=== PATIENT | female | born 1995 | race Caucasian/White ===

== ENCOUNTER 2018-10-23 12:22 | Outpatient (CLI) | payer SELFPAY | END 2018-10-23 15:10 | disposition home or self-care (01) | LOC: OBT 12:22 → L-D 12:22 → OBT 15:10 | DX: O36.8130 Decreased fetal movements, third trimester, not applicable or unspecified (principal); Z3A.37 37 weeks gestation of pregnancy | CPT/HCPCS: 76818 ==

== ENCOUNTER 2018-11-14 16:27 | Inpatient (IN) | payer SELFPAY ==
[2018-11-14] MEDS ORDERED: MISOPROSTOL 200 MCG TAB PR (17:00)
[2018-11-14] MEDS ORDERED: BUTORPHANOL 1 MG INJ IV (17:00)
[2018-11-14] MEDS ORDERED: OXYTOCIN 30 UNITS/LR 500 ML IV ×2 (17:00)
[2018-11-14] MEDS ORDERED: LIDOCAINE 1% (MPF) 30 ML INJ INJ (17:00)
[2018-11-14] MEDS ORDERED: METHYLERGONOVINE 0.2 MG INJ IM (17:00)
[2018-11-14] MEDS ORDERED: BUTORPHANOL 2 MG INJ IV (17:00)
[2018-11-14] MEDS ORDERED: CARBOPROST 250 MCG INJ IM (17:00)
[2018-11-14] MEDS ORDERED: IBUPROFEN 600 MG TAB PO (17:00)
[2018-11-14 18:12] LABS: ADD MAN DIFF? NO
[2018-11-14 18:14] LABS: WHITE BLOOD COUNT 10.7 10^3/ul (4.8-10.8)
[2018-11-14 18:14] LABS: BASOPHILS % 0.2 % (0.0-2.0); EOSINOPHILS % 0.3 % (0.0-7.0); HEMATOCRIT 32.5 % (37.0-47.0); LYMPHOCYTES # 2.3 10^3/ul (0.8-2.9); LYMPHOCYTES % 21.3 % (15.0-51.0); MEAN CORPUSCULAR HEMOGLOBIN 31.3 pg (29.0-33.0); MEAN CORPUSCULAR HGB CONC 33.8 g/dl (32.0-37.0); MEAN CORPUSCULAR VOLUME 92.6 fl (82.0-101.0); MEAN PLATELET VOLUME 11.4 fl (7.4-10.4); MONOCYTE # 1.1 10^3/ul (0.3-0.9); MONOCYTES % 10.7 % (0.0-11.0); NEUTROPHIL # 7.1 10^3/ul (1.6-7.5); NEUTROPHILS % 66.9 % (39.0-77.0); PLATELET COUNT 214 10^3/UL (140-415); RED BLOOD COUNT 3.51 10^6/ul (4.20-5.40); RED CELL DISTRIBUTION WIDTH 13.3 % (11.5-14.5)
[2018-11-14 18:34] LABS: INR 0.93; PARTIAL THROMBOPLASTIN TIME 24.5 Sec (23.0-35.0); PROTIME 12.5 Sec (11.9-14.9)
[2018-11-14] MEDS: LACTATED RINGER'S 1,000 ML IV (18:53)
[2018-11-14 19:07] LABS: HEPATITIS B SURFACE ANTIGEN NEGATIVE (NEGATIVE)
[2018-11-14] MEDS: MISOPROSTOL 50 MCG CAPSULE VAG (20:15)
[2018-11-15] MEDS: MISOPROSTOL 50 MCG CAPSULE VAG ×2 (00:04→05:22)
[2018-11-15] MEDS: LACTATED RINGER'S 1,000 ML IV ×5 (00:33→20:05)
[2018-11-15] MEDS ORDERED: FENTAnyl 2MCG/ML-ROPIV 0.2% 100 ML (09:15)
[2018-11-15] MEDS ORDERED: ONDANSETRON 4 MG INJ IV (09:30)
[2018-11-15] MEDS ORDERED: NALBUPHINE HCL (10 MG/1 ML) INJ IV (09:30)
[2018-11-15] MEDS ORDERED: NALOXONE (0.4 MG/ML) INJ IV (09:30)
[2018-11-15] MEDS ORDERED: DIPHENHYDRAMINE 50 MG INJ IV (09:30)
[2018-11-15] MEDS: FENTAnyl 2MCG/ML-ROPIV 0.2% 100 ML BAG EPI ×3 (10:34→23:52)
[2018-11-15] MEDS: OXYTOCIN 30 UNITS/LR 500 ML IV (10:56)
[2018-11-15] MEDS ORDERED: MINERAL OIL LIGHT 10 ML VIAL TOP (11:00)
[2018-11-15 15:02] LABS: RAPID PLASMA REAGIN NONREACTIVE (NR)
[2018-11-15] MEDS: ACETAMINOPHEN 325 MG TAB PO (19:43)
[2018-11-15] MEDS: GENTAMICIN 120 MG/NS (PMX) 100 ML IVPB (20:06)
[2018-11-15] MEDS: AMPICILLIN 2 GM/NS (PMX) 100 ML IVPB (21:19)
[2018-11-15 23:05] LABS: LACTIC ACID 1.5 mmol/L (0.5-2.0)
[2018-11-16] MEDS: OXYTOCIN 30 UNITS/LR 500 ML IV ×2 (00:11→09:16)
[2018-11-16] MEDS: AMPICILLIN 2 GM/NS (PMX) 100 ML IVPB ×5 (01:15→23:23)
[2018-11-16] MEDS: LACTATED RINGER'S 1,000 ML IV ×2 (02:28→17:10)
[2018-11-16] MEDS: GENTAMICIN 80 MG/NS (PMX) 50 ML IVPB ×3 (03:47→20:13)
[2018-11-16] MEDS: FENTAnyl 2MCG/ML-ROPIV 0.2% 100 ML BAG EPI (05:05)
[2018-11-16] MEDS ORDERED: CEFAZOLIN 2 GM/50 ML (PMX) 50 ML IVPB ×2 (06:47→07:00)
[2018-11-16] MEDS ORDERED: FENTAnyl 50 MCG/ML VIAL (07:35)
[2018-11-16] MEDS ORDERED: LIDOCAINE 1.5%/EPI MPF (SDV) 30 ML VIAL (07:35)
[2018-11-16] MEDS ORDERED: SODIUM BICARBONATE (IV ADD) 50 ML (07:35)
[2018-11-16] MEDS ORDERED: MIDAZOLAM 1 MG/ML 2 ML INJ (07:57)
[2018-11-16] MEDS ORDERED: DEXAMETHASONE 4 MG/ML 1 ML INJ (07:57)
[2018-11-16] MEDS ORDERED: PHENYLephrine (100 MCG/ML) 10ML SYG ×2 (08:16→08:17)
[2018-11-16] MEDS ORDERED: morphine 10 MG INJ (08:18)
[2018-11-16] MEDS: AZITHROMYCIN 500MG/NS (PMX) 250 ML IVPB (09:22)
[2018-11-16] MEDS ORDERED: KETOROLAC 30 MG INJ (10:59)
[2018-11-16] MEDS ORDERED: DIPHENHYDRAMINE 50 MG INJ IV (11:00)
[2018-11-16] MEDS ORDERED: ZOLPIDEM 5 MG TAB PO (11:00)
[2018-11-16] MEDS ORDERED: HYDROmorphONE 0.5 MG/0.5 ML SYG IV ×2 (11:00)
[2018-11-16] MEDS ORDERED: ONDANSETRON 4 MG INJ IV (11:00)
[2018-11-16] MEDS ORDERED: NALOXONE (0.4 MG/ML) INJ IV (11:00)
[2018-11-16] MEDS ORDERED: OXYTOCIN 30 UNITS/LR 500 ML IV (11:30)
[2018-11-16] MEDS ORDERED: NA PHOSPHATE/BIPHOS 133 ML ENEMA PR (11:30)
[2018-11-16] MEDS ORDERED: CARBOPROST 250 MCG INJ IM (11:30)
[2018-11-16] MEDS ORDERED: METHYLERGONOVINE 0.2 MG INJ IM (11:30)
[2018-11-16] MEDS ORDERED: LANOLIN HPA 1 PKT TOP (11:30)
[2018-11-16] MEDS ORDERED: MISOPROSTOL 200 MCG TAB PR (11:30)
[2018-11-16] MEDS ORDERED: CLINDAMYCIN 900 MG/D5W (PMX) 50 ML IVPB ×2 (12:00→12:30)
[2018-11-16] MEDS ORDERED: AMPICILLIN 2 GM/NS (PMX) 100 ML IVPB (12:00)
[2018-11-16 12:26] LABS: ALANINE AMINOTRANSFERASE 12 IU/L (13-69); ALBUMIN 2.5 g/dl (3.3-4.9); ALBUMIN/GLOBULIN RATIO 0.92; ALKALINE PHOSPHATASE 138 IU/L (42-121); ANION GAP 11 (5-13); ASPARTATE AMINO TRANSFERASE 24 IU/L (15-46); BILIRUBIN,INDIRECT 0.3 mg/dl (0-1.1); BILIRUBIN,TOTAL 0.3 mg/dl (0.2-1.3); BLOOD UREA NITROGEN 15 mg/dl (7-20); CALCIUM 7.9 mg/dl (8.4-10.2); CARBON DIOXIDE 18 mmol/L (21-31); CHLORIDE 108 mmol/L (97-110); CREATININE 1.42 mg/dl (0.44-1.00); Estimated GFR 45 mL/min (>60); GLUCOSE 118 mg/dl (70-220); POTASSIUM 4.2 mmol/L (3.5-5.1); SODIUM 137 mmol/L (135-144); TOTAL PROTEIN 5.2 g/dl (6.1-8.1); URIC ACID 8.6 mg/dl (3.1-7.9)
[2018-11-16 12:43] LABS: ADD UMIC YES; UR ASCORBIC ACID NEGATIVE (NEGATIVE); UR BACTERIA FEW /HPF (NONE SEEN); UR BILIRUBIN (Dip) NEGATIVE (NEGATIVE); UR BLOOD (Dip) 2+ mg/dL (NEGATIVE); UR CLARITY CLEAR (CLEAR); UR COLOR YELLOW (YELLOW); UR GLUCOSE (Dip) NEGATIVE (NEGATIVE); UR KETONES (Dip) TRACE mg/dL (NEGATIVE); UR LEUKOCYTE ESTERASE (Dip) NEGATIVE Leu/ul (NEGATIVE); UR NITRITE (Dip) NEGATIVE (NEGATIVE); UR RBC 83 /HPF (0-5); UR SPECIFIC GRAVITY (Dip) 1.016 (1.003-1.030); UR TOTAL PROTEIN (Dip) 2+ mg/dl (NEGATIVE); UR UROBILINOGEN (Dip) NEGATIVE (NEGATIVE); UR WBC 16 /HPF (0-5)
[2018-11-16] MEDS: CLINDAMYCIN 900 MG/D5W (PMX) 50 ML IVPB ×2 (14:35→19:16)
[2018-11-16] MEDS: SENNA/DOCUSATE NA (8.6MG/50MG) TAB PO (20:13)
[2018-11-16] MEDS: KETOROLAC 30 MG INJ IV (20:14)
[2018-11-17] MEDS: CLINDAMYCIN 900 MG/D5W (PMX) 50 ML IVPB ×4 (00:33→18:39)
[2018-11-17] MEDS: GENTAMICIN 80 MG/NS (PMX) 50 ML IVPB ×3 (04:36→20:04)
[2018-11-17] MEDS: KETOROLAC 30 MG INJ IV (05:03)
[2018-11-17] MEDS: AMPICILLIN 2 GM/NS (PMX) 100 ML IVPB ×4 (05:17→23:28)
[2018-11-17 06:30] LABS: HEMATOCRIT 24.3 % (37.0-47.0); HEMOGLOBIN 8.3 g/dl (12.0-16.0); MEAN CORPUSCULAR HEMOGLOBIN 31.7 pg (29.0-33.0); MEAN CORPUSCULAR HGB CONC 34.2 g/dl (32.0-37.0); MEAN CORPUSCULAR VOLUME 92.7 fl (82.0-101.0); MEAN PLATELET VOLUME 10.9 fl (7.4-10.4); PLATELET COUNT 144 10^3/UL (140-415); RED BLOOD COUNT 2.62 10^6/ul (4.20-5.40); RED CELL DISTRIBUTION WIDTH 13.6 % (11.5-14.5)
[2018-11-17 06:54] LABS: ADD MAN DIFF? YES
[2018-11-17 07:34] LABS: LYMPHOCYTES #M 1.6 10^3/ul (0.8-2.9); LYMPHOCYTES % (M) 12 % (15-51); MONOCYTE #M 0.7 10^3/ul (0.3-0.9); MONOCYTES % (M) 5 % (0-11); PLATELET ESTIMATE NORMAL; SEGMENTED NEUTROPHILS (M) % 83 % (39-77); SMUDGE%M 2 % (0-0)
[2018-11-17] MEDS: BISACODYL 10 MG SUPP PR (08:00)
[2018-11-17] MEDS: SENNA/DOCUSATE NA (8.6MG/50MG) TAB PO ×2 (09:55→21:18)
[2018-11-17] MEDS: IBUPROFEN 800 MG TAB PO ×2 (10:42→21:18)
[2018-11-17] MEDS ORDERED: HYDROCODONE/APAP (5/325) TAB PO (11:00)
[2018-11-17] MEDS: OXYCODONE/ACETAMINOPHEN (5/325) TAB PO (17:45)
[2018-11-18] MEDS: CLINDAMYCIN 900 MG/D5W (PMX) 50 ML IVPB ×2 (00:29→06:29)
[2018-11-18] MEDS: GENTAMICIN 80 MG/NS (PMX) 50 ML IVPB ×2 (04:03→12:08)
[2018-11-18] MEDS: OXYCODONE/ACETAMINOPHEN (5/325) TAB PO (04:08)
[2018-11-18] MEDS: AMPICILLIN 2 GM/NS (PMX) 100 ML IVPB (05:15)
[2018-11-18] MEDS: IBUPROFEN 800 MG TAB PO ×2 (05:42→14:19)
[2018-11-18 09:04] LABS: ADD MAN DIFF? NO
[2018-11-18 09:08] LABS: WHITE BLOOD COUNT 10.2 10^3/ul (4.8-10.8)
[2018-11-18 09:08] LABS: BASOPHILS % 0.2 % (0.0-2.0); EOSINOPHILS # 0.1 10^3/ul (0.0-0.5); EOSINOPHILS % 0.7 % (0.0-7.0); HEMATOCRIT 23.7 % (37.0-47.0); HEMOGLOBIN 7.9 g/dl (12.0-16.0); LYMPHOCYTES % 19.1 % (15.0-51.0); MEAN CORPUSCULAR HEMOGLOBIN 31.5 pg (29.0-33.0); MEAN CORPUSCULAR HGB CONC 33.3 g/dl (32.0-37.0); MEAN CORPUSCULAR VOLUME 94.4 fl (82.0-101.0); MONOCYTE # 0.9 10^3/ul (0.3-0.9); MONOCYTES % 9.1 % (0.0-11.0); NEUTROPHIL # 7.2 10^3/ul (1.6-7.5); NEUTROPHILS % 70.3 % (39.0-77.0); PLATELET COUNT 156 10^3/UL (140-415); RED BLOOD COUNT 2.51 10^6/ul (4.20-5.40); RED CELL DISTRIBUTION WIDTH 14.3 % (11.5-14.5)
[2018-11-18 09:32] LABS: CREATININE 0.75 mg/dl (0.44-1.00)
[2018-11-18 09:32] LABS: BLOOD UREA NITROGEN 12 mg/dl (7-20)
[2018-11-18] MEDS: SENNA/DOCUSATE NA (8.6MG/50MG) TAB PO (10:05)
[2018-11-18 12:16] LABS: GENTAMICIN,TROUGH 1.4 ug/ml (1.0-2.0)
[2018-11-18] MEDS ORDERED: ACETAMINOPHEN 325 MG TAB PO (13:30)
[2018-11-19] MEDS ORDERED: DIPHTH/TET/ACEL PERTUSS (ADULT) 0.5 ML VIAL IM* (09:00)
[2018-11-19] MEDS ORDERED: MEASLES,MUMPS,RUBELLA VACCINE INJ SC* (09:00)
== END 2018-11-18 15:45 | disposition home or self-care (01) | DRG 788 ==
LOC: L-D 16:27 → PP1 11-16 11:05
PROVIDERS: Obstetrics & Gynecology
PROC: 4A1HXCZ Monitoring of Products of Conception, Cardiac Rate, External Approach (ICD-10-PCS; 2018-11-14 16:00)
PROC: 3E0P7GC Introduction of Other Therapeutic Substance into Female Reproductive, Via Natural or Artificial Opening (ICD-10-PCS; 2018-11-14 16:00)
PROC: 10D00Z1 Extraction of Products of Conception, Low, Open Approach (ICD-10-PCS; principal; 2018-11-16 08:00)
DX: O48.0 Post-term pregnancy (principal); O62.1 Secondary uterine inertia; O32.4XX0 Maternal care for high head at term, not applicable or unspecified; Z3A.40 40 weeks gestation of pregnancy; Z37.0 Single live birth
CPT/HCPCS: 62319; 76815; 80053; 80170; 81001; 82565; 83605; 84520; 84560; 85025; 85384; 85610; 85730; 86592; 86850; 86900; 86901; 87040; 87086; 87340; 88307; 99464

== ENCOUNTER 2019-02-20 20:05 | Emergency (ER) | payer SELFPAY, MEDICAID | END 2019-02-20 21:57 | disposition left against medical advice (07) | LOC: FTE 21:57 | DX: Z53.21 Procedure and treatment not carried out due to patient leaving prior to being seen by health care provider (principal) ==